=== PATIENT | male | born 1990 | race Caucasian/White ===

== ENCOUNTER 2016-07-24 18:42 | Emergency (ER) | payer OTHER | END 2016-07-24 20:15 | disposition home or self-care (01) | LOC: ER 18:42 | DX: J06.9 Acute upper respiratory infection, unspecified (principal); F32.9 Major depressive disorder, single episode, unspecified; F17.200 Nicotine dependence, unspecified, uncomplicated | CPT/HCPCS: 87502 ==

== ENCOUNTER 2016-08-20 18:02 | Emergency (ER) | payer OTHER | END 2016-08-20 20:50 | disposition home or self-care (01) | LOC: ER 18:02 | DX: S39.011A Strain of muscle, fascia and tendon of abdomen, initial encounter (principal); R05 Cough; F32.9 Major depressive disorder, single episode, unspecified; F17.210 Nicotine dependence, cigarettes, uncomplicated; X58.XXXA Exposure to other specified factors, initial encounter ==